=== PATIENT | male | born 1945 | race Caucasian/White ===

== ENCOUNTER 2018-12-16 12:19 | Outpatient (CLI) | payer MEDICARE | END 2018-12-16 12:20 | disposition critical access hospital (66) | LOC: EMS 12:19 | PROVIDERS: ATTEND Surgery | DX: R55 Syncope and collapse (principal); R09.89 Other specified symptoms and signs involving the circulatory and respiratory systems | CPT/HCPCS: A0425; A0427 ==

== ENCOUNTER 2018-12-16 12:55 | Emergency (ER) | payer MEDICARE ==
--- NOTE | 2018-12-16 13:39 | ED Physician Documentation ---
PD HPI CHEST PAIN - Stated complaint Stated Complaint: NEAR SYNCOPE - Chief complaint Chief Complaint: Neuro - History obtained from History obtained from: Patient - History of Present Illness Timing - onset: Today Timing - onset during: Other Timing - duration: Seconds Timing - details: Abrupt onset Pain level now: 0 Associated symptoms: No: Shortness of air - Additional information Additional information: This is a 73-year-old man who she started doing [employer] a couple months ago doing a cardiovascular and strengthening program. He got a [employer] today felt fine while he was exercising and then was standing out side talking when suddenly his "guts" hurt he felt the urge to either vomit or have a bowel movement so he was walking to go back and go to the bathroom when he suddenly felt very lightheaded so he stopped, leaned against the car and then went down onto his knees because he felt like he was going to black out next thing he knew he was on the ground on his side looking up at his friend and talking to him. He says he was out for maybe just a couple of seconds at that. He did not hit his head or injure himself. He did not even have any incontinence and once he got him sitting up and he was feeling a little better he went into the bathroom and had episode of diarrhea without any blood in it. The ambulance came and started an IV he is feeling better after the IV fluids. He feels convinced that this is due to some dehydration because he was very busy yesterday and did not drink enough water and then today got up had a cup of bone broth before he went to [employer] but did not drink any water. He had no episode of vomiting during this and no seizure activity. He is never had this before. The patient does have coronary artery disease and in 2010 underwent coronary artery bypass grafting x3 vessels. He denies any feeling of palpitation or chest pain prior to this no shortness of breath. Did not experience visual changes. He has no headache. He had a physical last week and his physical was normal. He has not heard the results of his laboratory studies yet. Review of Systems Constitutional: denies: Fever Eyes: denies: Loss of vision Ears: denies: Loss of hearing, Tinnitus/ringing Nose: denies: Congestion Throat: denies: Sore throat Cardiac: denies: Chest pain / pressure, Palpitations Respiratory: denies: Dyspnea, Cough GI: reports: Abdominal Pain, Diarrhea. denies: Vomiting, Bloody / black stool : denies: Dysuria, Frequency, Incontinent Skin: denies: Rash Musculoskeletal: denies: Extremity pain, Joint pain Neurologic: reports: Syncope. denies: Generalized weakness, Focal weakness, Numbness, Difficulty speaking, Confused, Altered mental status, Head injury Endocrine: denies: Polydypsia, Polyuria Immunocompromised: denies: Immunocompromised PD PAST MEDICAL HISTORY - Past Medical History Past Medical History: Yes Cardiovascular: Coronary artery disease - Past Surgical History Past Surgical History: Yes - Present Medications Home Medications: Ambulatory Orders Medication Instructions Recorded Confirmed No Known Home Medications 06/12/13 12/16/18 - Allergies Allergies/Adverse Reactions: Allergies Allergy/AdvReac Type Severity Reaction Status Date / Time No Known Drug Allergies Allergy Verified 12/16/18 13:02 - Social History Does the pt smoke?: No Smoking Status: Never smoker Does the pt drink ETOH?: Yes Does the pt have substance abuse?: No - Immunizations Immunizations are current?: Yes - POLST Patient has POLST: No PD ED PE NORMAL - Vitals Vital signs reviewed: Yes - General General: Alert and oriented X 3, No acute distress, Well developed/nourished, Other (He is a thin 73-year-old man is very pleasant) - HEENT HEENT: Atraumatic, PERRL, EOMI, Pharynx benign, Other (Mucous membranes are dry.) - Neck Neck: No adenopathy, Thyroid normal, No bruit - Cardiac Cardiac: RRR, No murmur, Other (Patient does not have a left radial pulse however he hadThe vessel removed for his bypass surgery there is a well-healed scar of the proximal forearm on the left. 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, No motor deficit, No sensory deficit, Normal speech - Psych Psych: Normal mood, Normal affect Results - Vitals Vitals: Vital Signs - 24 hr 12/16/18 12/16/18 12/16/18 12:57 14:30 15:46 Temperature 36.6 C Heart Rate 73 74 76 Respiratory 14 17 20 Rate Blood Pressure 121/91 H 133/92 H 132/72 H O2 Saturation 100 99 99 Oxygen O2 Source Room air - EKG (time done) 1422 Rate: Rate (enter#) Rhythm: NSR Intervals: Normal CO Ischemia: Normal ST segments Compare to prior EKG: Old EKG unavailable - Labs Labs: Laboratory Tests 12/16/18 12/16/18 12/16/18 13:53 14:07 14:07 WBC 9.4 RBC 4.81 Hgb 15.3 Hct 45.6 MCV 94.8 H MCH 31.8 H MCHC 33.6 RDW 14.9 Plt Count 147 MPV 10.8 Neut # (Auto) 7.8 H Lymph # (Auto) 0.9 L Owsley # (Auto) 0.7 Eos # (Auto) 0.0 Baso # (Auto) 0.0 Absolute Nucleated RBC 0.00 Nucleated RBC % 0.0 Sodium 141 Potassium 4.3 Chloride 103 Carbon Dioxide 25 Anion Gap 13.0 BUN 34 H Creatinine 1.0 Estimated GFR (MDRD) 73 L Glucose 99 Calcium 9.7 Phosphorus 3.0 Magnesium 2.0 Total Bilirubin 0.7 AST 25 ALT 22 Alkaline Phosphatase 81 Troponin I High Sens Total Protein 7.8 Albumin 4.6 Globulin 3.2 Albumin/Globulin Ratio 1.4 Lipase 33 Urine Color YELLOW Urine Clarity CLEAR Urine pH 5.5 Ur Specific [place] >=1.030 H Urine Protein NEGATIVE Urine Glucose (UA) NEGATIVE Urine Ketones TRACE Urine Occult Blood NEGATIVE Urine Nitrite NEGATIVE Urine Bilirubin NEGATIVE Urine Urobilinogen 0.2 (NORMAL) Ur Leukocyte Esterase NEGATIVE Ur Microscopic Review NOT INDICATED Urine Culture Comments NOT INDICATED 12/16/18 14:07 WBC RBC Hgb Hct MCV MCH MCHC RDW Plt Count MPV Neut # (Auto) Lymph # (Auto) Owsley # (Auto) Eos # (Auto) Baso # (Auto) Absolute Nucleated RBC Nucleated RBC % Sodium Potassium Chloride Carbon Dioxide Anion Gap BUN Creatinine Estimated GFR (MDRD) Glucose Calcium Phosphorus Magnesium Total Bilirubin AST ALT Alkaline Phosphatase Troponin I High Sens 5.2 Total Protein Albumin Globulin Albumin/Globulin Ratio Lipase Urine Color Urine Clarity Urine pH Ur Specific [place] Urine Protein Urine Glucose (UA) Urine Ketones Urine Occult Blood Urine Nitrite Urine Bilirubin Urine Urobilinogen Ur Leukocyte Esterase Ur Microscopic Review Urine Culture Comments - Rads (name of study) CXR Radiology: EMP read contemporaneously, See rad report CT head Radiology: See rad report PD MEDICAL DECISION MAKING - ED course Complexity details: reviewed results, re-evaluated patient, d/w patient, d/w family ED course: Patient was feeling better after the IV fluids. He was up in the CAT scan room and went to the bathroom did not have any episodes of feeling dizzy. Labs do look like he was volume depleted with an elevated BUN and high specific gravity. He was monitored here on a cardiac technologist without any evidence of any ectopy and had a negative troponin. He desires to go home and I do not see any indication that this was anything other than a syncope versus near syncope related to volume dehydration. He is discharged home with outpatient follow-up. Departure - Departure Disposition: 01 Home, Self Care Clinical Impression: Volume depletion, unspecified Syncope Qualifiers: Syncope type: unspecified Qualified Code(s): R55 - Syncope and collapse Condition: Good Instructions: ED Dizziness Syncope Fainting W Pre Follow-Up: Lakesha Boston ARNP [Primary Care Provider] - Comments: Make sure to keep yourself well-hydrated. Make sure you eat today. Follow-up with your primary care provider for reevaluation. I would ease back into any physical activity and make sure that if you experience feelings of palpitation, lightheadedness or nausea or vomiting during activity that you stop immediately.
[2018-12-16] MEDS ORDERED: SODIUM CHLORIDE 0.9% 1,000 ML IV ONE (13:40)
[2018-12-16 14:13] LABS: BASOPHILS % (AUTO) 0.4 %; EOSINOPHILS % (AUTO) 0.2 %; HGB - HEMOGLOBIN 15.3 g/dL (14.0-18.0); LYMPHOCYTES # (AUTO) 0.9 10^3/uL (1.5-3.5); MEAN CORPUSCULAR HEMOGLOBIN 31.8 pg (27.0-31.0); MEAN CORPUSCULAR HGB CONC 33.6 g/dL (32.0-36.0); MEAN CORPUSCULAR VOLUME 94.8 fL (80.0-94.0); MEAN PLATELET VOLUME 10.8 fL (7.4-11.4); MONOCYTES # (AUTO) 0.7 10^3/uL (0.0-1.0); NEUTROPHILS # (AUTO) 7.8 10^3/uL (1.5-6.6); NEUTROPHILS % (AUTO) 83.1 %; PLT - PLATELET COUNT 147 10^3/uL (130-450); RED BLOOD COUNT 4.81 10^6/uL (4.70-6.10); RED CELL DISTRIBUTION WIDTH 14.9 % (12.0-15.0); WHITE BLOOD COUNT 9.4 x10^3/uL (4.8-10.8)
[2018-12-16 14:24] LABS: ALBUMIN 4.6 g/dL (3.2-5.5); ALBUMIN/GLOBULIN RATIO 1.4 (1.0-2.2); BILIRUBIN,TOTAL 0.7 mg/dL (0.2-1.0); CALCIUM 9.7 mg/dL (8.5-10.3); TOTAL PROTEIN 7.8 g/dL (6.7-8.2)
[2018-12-16 14:29] LABS: BILIRUBIN,URINE NEGATIVE (NEGATIVE); GLUCOSE, URINE (UA) NEGATIVE (NEGATIVE); KETONES,URINE (UA) TRACE mg/dL (NEGATIVE); LEUKOCYTE ESTERASE, URINE NEGATIVE (NEGATIVE); NITRITE,URINE NEGATIVE (NEGATIVE); OCCULT BLOOD,URINE NEGATIVE (NEGATIVE); PH,URINE 5.5 PH (5.0-7.5); PROTEIN,URINE NEGATIVE (NEGATIVE); UROBILINOGEN,URINE 0.2 (NORMAL) E.U./dL (NORMAL)
[2018-12-16 14:36] LABS: CLARITY,URINE CLEAR (CLEAR)
--- NOTE | 2018-12-16 14:37 | XRAY Report ---
Reason: chest pain Procedure Date: 12/16/2018 Accession Number: [id number] / [id number] Procedure: XR - Chest 1 View X-Ray CPT Code: 66910 FULL RESULT: EXAM: CHEST RADIOGRAPHY EXAM DATE: 12/16/2018 02:18 PM. CLINICAL HISTORY: Chest pain. COMPARISON: XR CHEST PA AND LAT 08/20/2010. TECHNIQUE: 1 view on 2 films. FINDINGS: Lungs/Pleura: No focal opacities evident. No pleural effusion. No pneumothorax. Mediastinum: Interval median sternotomy and coronary artery bypass since 2010. Heart size normal. Mild tortuous aorta with atherosclerosis, stable. Other: None. IMPRESSION: 1. Lungs clear. 2. Interval coronary artery bypass since 2010. RADIA
--- NOTE | 2018-12-16 14:41 | CT Report ---
Reason: syncope Procedure Date: 12/16/2018 Accession Number: [id number] / [id number] Procedure: CT - HEAD WO CPT Code: FULL RESULT: EXAM: CT HEAD EXAM DATE: 12/16/2018 02:34 PM. CLINICAL HISTORY: Dizziness and syncope. COMPARISON: None. TECHNIQUE: Multiaxial CT images were obtained from the foramen magnum to the vertex. Reformats: Sagittal and coronal. IV contrast: None. In accordance with CT protocol optimization, one or more of the following dose reduction techniques were utilized for this exam: automated exposure control, adjustment of mA and/or KV based on patient size, or use of iterative reconstructive technique. FINDINGS: Parenchyma: No intraparenchymal hemorrhage. No evidence of mass, midline shift, or CT findings of infarction. March-white differentiation is distinct. Extraaxial Spaces: Normal for age. No subdural or epidural collections identified. Ventricles: Normal in size and position. Sinuses and Orbits: Imaged paranasal sinuses, orbits, and mastoids show no significant abnormality. Bones: No evidence of fracture or calvarial defect. Other: None. IMPRESSION: Normal head CT. RADIA
[2018-12-16 15:47] VITALS: BP 132/72
== END 2018-12-16 15:56 | disposition home or self-care (01) ==
LOC: EDUNIT# → ED 12:55
DX: E86.9 Volume depletion, unspecified (principal); R55 Syncope and collapse
CPT/HCPCS: 36415; 70450; 71045; 80053; 81001; 81003; 83690; 83735; 84100; 84484; 85025; 87086; 93005; 96360; 99284

== ENCOUNTER 2019-10-03 10:19 | Outpatient (CLI) | payer MEDICARE | END 2019-10-04 10:20 | disposition short-term general hospital (02) | LOC: EMS 10:19 | PROVIDERS: ATTEND Surgery | DX: R47.9 Unspecified speech disturbances (principal); R53.1 Weakness; H53.8 Other visual disturbances | CPT/HCPCS: A0425; A0427 ==

== ENCOUNTER 2019-10-13 15:35 | Outpatient (CLI) | payer MEDICARE ==
--- NOTE | 2019-10-13 16:13 | XRAY Report ---
PROCEDURE: Hand 3 View RT INDICATIONS: Pain in right hand and wrist TECHNIQUE: 3 views of the hand(s) acquired. COMPARISON: None FINDINGS: Bones: No fractures or dislocations. Mild osteoarthritic changes are noted throughout right hand and wrist joints. No suspicious bony lesions. Soft tissues: Chondrocalcinosis is seen in the radiocarpal and ulnocarpal joints. IMPRESSION: Mild hand and wrist joint osteoarthritis. No gross acute fracture or dislocation. Chondrocalcinosis a s above. Reviewed by: Phi Carmichael MD on 10/13/2019 4:12 PM PDT Approved by: Phi Carmichael MD on 10/13/2019 4:12 PM PDT Station ID: [id number]
--- NOTE | 2019-10-13 16:14 | XRAY Report ---
PROCEDURE: Wrist 4 View RT INDICATIONS: PAIN OF RIGHT WRIST TECHNIQUE: 4 views of the wrist were acquired. COMPARISON: None FINDINGS: Bones: No fractures or dislocations. Osteoarthritic changes throughout wrist joints are seen. No candelaria spicious bony lesions. Scaphoid view: Scaphoid is intact. Soft tissues: Chondrocalcinosis involving radiocarpal joint and trying fibrocartilage is seen. IMPRESSION: No acute wrist fracture or dislocation. Wrist joint osteoarthritis and chondrocalcinosis as above. Reviewed by: Phi Carmichael MD on 10/13/2019 4:13 PM PDT Approved by: Phi Carmichael MD on 10/13/2019 4:13 PM PDT Station ID: [id number]
== END 2019-10-13 15:36 | disposition home or self-care (01) ==
LOC: DI.S 15:35
PROVIDERS: ATTEND Registered Nurse
DX: M19.041 Primary osteoarthritis, right hand (principal); M19.031 Primary osteoarthritis, right wrist; M11.231 Other chondrocalcinosis, right wrist